=== PATIENT | male | born 1960 | race Caucasian/White ===

== ENCOUNTER → 2016-05-10 | Outpatient (CLI) | payer BC ==
--- NOTE | 2016-05-10 18:55 | REP ---
PET/CT: History: Pulmonary nodule. Comparisons: Comparison chest CT study 04/20/2016. This is from [facility] and was read as showing irregular opacity in the right upper lobe. TECHNIQUE: 85 minutes following the intravenous injection of a 8.2 mCi dose of F-18 FDG, three-dimensional PET scintigraphy is acquired from the skull base to the proximal thighs. Triplanar noncontrast CT scanning is acquired through the same anatomic range for attenuation correction, and image registration with scan parameters optimized to minimize radiation exposure to the patient. PET scintigraphy and CT datasets were fused and displayed on a workstation with multiplanar and projection display capability. PET/CT Findings: There is discernible although non hypermetabolic FDG accumulation in the fibronodular opacities in the right upper lobe. Maximum SUV value is 1.5. The other subcentimeter noncalcified pulmonary nodules visible in the upper lobes bilaterally show no hypermetabolic uptake. There is a granulomatous calcification in the left lower lobe. No hypermetabolic hilar or mediastinal uptake is seen. The head and neck soft tissues are unremarkable. In the abdomen and pelvis, normal hepatic, splenic, gastrointestinal, and genitourinary FDG accumulation is seen. No abnormal hypermetabolic uptake is observed. No abnormal skeletal uptake is seen. Incidental note is made of a cystic lesion in the central pelvis. This appears to reside above the prostate and seminal vesicles and posterior-superior to the urinary bladder. It is of uncertain significance. It measures up to 7 cm in diameter. Impression: No abnormal hypermetabolic uptake seen. CT followup is recommended for the right upper lobe lesions and noncalcified pulmonary nodules. Follow-up CT study in 4-6 months. Incidental note is made of a cystic lesion in the pelvis which should be further evaluated. CT abdomen and pelvis with IV and oral contrast recommended. Signed by Antoine Gallo MD 05/11/2016 09:05 A
== END ==
LOC: M RAD 07:29
PROVIDERS: ATTEND Internal Medicine Pulmonary Disease
DX: R91.8 Other nonspecific abnormal finding of lung field (principal)
CPT/HCPCS: 78815; A9552

== ENCOUNTER → 2016-08-11 | Outpatient (REF) | payer BC | LOC: M SFHCLERA 19:47 | PROVIDERS: ATTEND Physician Assistant | DX: L02.91 Cutaneous abscess, unspecified (principal) ==

== ENCOUNTER → 2021-07-09 | Outpatient (CLI) | payer BC | LOC: M LABSMTC 09:06 | PROVIDERS: ATTEND Anesthesiology | DX: Z20.828 Contact with and (suspected) exposure to other viral communicable diseases (principal); Z11.59 Encounter for screening for other viral diseases ==

== ENCOUNTER 2021-07-14 06:45 | Day surgery (SDC) | payer BC ==
[~2021-07-14] VITALS: Ht 188 cm; Wt 86.2 kg
[~2021-07-14 06:45] MED LIST: GLIM4TAB5; LIDOCAINE 1% SDV 5ML VIAL As Ordered ONE; PARO40TA2; PIOG1TAB55; POLYSOL
[2021-07-14] MEDS ORDERED: LR 1,000 ML IV SCH (07:00)
[2021-07-14] MEDS ORDERED: MAXITROL OPHTH SUSP 5 ML As Ordered ONE (07:09)
[2021-07-14] MEDS: PHENYLEPHRINE 2.5% OPHTH SOL 2ML OD SCH ×3 (07:20→07:39)
[2021-07-14] MEDS: CYCLOPENTOLATE 1% OPHTH SOLN 2 ML BTL OD SCH ×3 (07:20→07:39)
[2021-07-14] MEDS: TETRACAINE 0.5% OPHTH SOLN 4ML OD SCH ×2 (07:20→07:27)
[2021-07-14] MEDS: FLURBIPROFEN 0.03% OPHTH SOLN 2.5 ML OD SCH ×3 (07:20→07:39)
[2021-07-14] MEDS ORDERED: MIDAZOLAM INJ 2MG/2ML VIAL (J2250 PER 1MG) As Ordered ONE (09:19)
[2021-07-14] MEDS ORDERED: fentaNYL 100 MCG/2 ML INJECTION As Ordered ONE (09:19)
[2021-07-14 09:46] VITALS: BP 115/74
== END 2021-07-14 10:26 | disposition home or self-care (01) ==
LOC: M SDC 06:45
PROVIDERS: ATTEND Ophthalmology
DX: H25.11 Age-related nuclear cataract, right eye (principal); E11.9 Type 2 diabetes mellitus without complications; F41.9 Anxiety disorder, unspecified; F32.9 Major depressive disorder, single episode, unspecified; Z79.84 Long term (current) use of oral hypoglycemic drugs; Z79.899 Other long term (current) drug therapy
CPT/HCPCS: 66984; J2250; J3010

== ENCOUNTER → 2021-08-07 | Outpatient (CLI) | payer BC ==
[~2021-08-07] MED LIST changes: -GLIM4TAB5; +GLIM4TAB5 PO; -LIDOCAINE 1% SDV 5ML VIAL As Ordered ONE; -PARO40TA2; +PARO40TA2 PO; -PIOG1TAB55; +PIOG1TAB55 PO
== END ==
LOC: M LABSMTC 09:18
PROVIDERS: ATTEND Anesthesiology
DX: Z01.812 Encounter for preprocedural laboratory examination (principal); Z20.822 Contact with and (suspected) exposure to COVID-19

== ENCOUNTER 2021-08-11 07:03 | Day surgery (SDC) | payer BC ==
[~2021-08-11] VITALS: Ht 188 cm; Wt 86.6 kg
[~2021-08-11 07:03] MED LIST changes: +CYCLOPENTOLATE 1% OPHTH SOLN 2 ML BTL OS SCH; +FLURBIPROFEN 0.03% OPHTH SOLN 2.5 ML OS SCH; +LIDOCAINE 1% SDV 5ML VIAL As Ordered ONE; +LR 1,000 ML IV SCH; +MAXITROL OPHTH SUSP 5 ML As Ordered ONE; +PHENYLEPHRINE 2.5% OPHTH SOL 2ML OS SCH; +PHENYLEPHRINE HCL 10 % OPHTH. SOL 5ML OS ONE; +TETRACAINE 0.5% OPHTH SOLN 4ML OS SCH
[2021-08-11] MEDS ORDERED: MIDAZOLAM INJ 2MG/2ML VIAL (J2250 PER 1MG) As Ordered ONE (08:56)
[2021-08-11] MEDS ORDERED: fentaNYL 100 MCG/2 ML INJECTION As Ordered ONE (08:56)
[2021-08-11 10:21] VITALS: BP 118/66
== END 2021-08-11 10:49 | disposition home or self-care (01) ==
LOC: M SDC 07:03
PROVIDERS: ATTEND Ophthalmology
DX: H25.12 Age-related nuclear cataract, left eye (principal); E11.9 Type 2 diabetes mellitus without complications; F17.210 Nicotine dependence, cigarettes, uncomplicated; Z79.84 Long term (current) use of oral hypoglycemic drugs; Z79.899 Other long term (current) drug therapy; J44.9 Chronic obstructive pulmonary disease, unspecified
CPT/HCPCS: 66984; J2250; J3010

== ENCOUNTER → 2024-10-01 | Outpatient (CLI) | payer OTHER ==
[~2024-10-01] MED LIST changes: +ASPI81CH33 PO; +ATOR1TAB21; -CYCLOPENTOLATE 1% OPHTH SOLN 2 ML BTL OS SCH; -FLURBIPROFEN 0.03% OPHTH SOLN 2.5 ML OS SCH; +HYDR-3713 PO; -LIDOCAINE 1% SDV 5ML VIAL As Ordered ONE; -LR 1,000 ML IV SCH; -MAXITROL OPHTH SUSP 5 ML As Ordered ONE; +ONDA-282 PO; +OXYC1TAB23 PO; -PHENYLEPHRINE 2.5% OPHTH SOL 2ML OS SCH; -PHENYLEPHRINE HCL 10 % OPHTH. SOL 5ML OS ONE; -TETRACAINE 0.5% OPHTH SOLN 4ML OS SCH; +TRAM50TA2 PO
== END ==
LOC: M SOG 07:08
PROVIDERS: ATTEND Physician Assistant
DX: S82.852D Displaced trimalleolar fracture of left lower leg, subsequent encounter for closed fracture with routine healing (principal)

== ENCOUNTER → 2024-10-29 | Outpatient (CLI) | payer OTHER | LOC: M SOG 06:58 | PROVIDERS: ATTEND Physician Assistant | DX: S82.852D Displaced trimalleolar fracture of left lower leg, subsequent encounter for closed fracture with routine healing (principal) ==

== ENCOUNTER → 2024-12-10 | Outpatient (CLI) | payer OTHER | LOC: M SOG 07:17 | PROVIDERS: ATTEND Physician Assistant | DX: S82.852D Displaced trimalleolar fracture of left lower leg, subsequent encounter for closed fracture with routine healing (principal) ==